=== PATIENT | female | born 1995 | race Caucasian/White ===

== ENCOUNTER 2018-09-21 19:13 | Emergency (ER) | payer BC, MEDICAID ==
[2018-09-21 19:29] VITALS: BP 117/72
[2018-09-21] MEDS ORDERED: Tetan/Diph/Pertus SYR(Tdap)* 0.5 ML SYR(BOOSTRIX) use SYR IM ONE (19:32)
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
== END 2018-09-21 19:46 | disposition home or self-care (01) ==
LOC: UCCORT 19:13
DX: T24.211A Burn of second degree of right thigh, initial encounter (principal); T31.0 Burns involving less than 10% of body surface; X11.8XXA Contact with other hot tap-water, initial encounter; Y93.G3 Activity, cooking and baking; Y92.833 Campsite as the place of occurrence of the external cause; L03.115 Cellulitis of right lower limb; Z23 Encounter for immunization
CPT/HCPCS: 16020; 90471; 90715; 99212; G0463

== ENCOUNTER 2019-05-05 09:49 | Emergency (ER) | payer BC ==
--- OUTSIDE RECORDS SUMMARY | 2019-05-05 09:57 | XMS REPORT | Continuity of Care Document ---
:1995 External Reference #:[id number] Author Name Orlando Bond N.P. 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 Tablets times a day as needed Phentermine HCL 1 by mouth 30caps E66.3 Christopher Ross, 09/03/2017 37.5mg every in the M.D. Capsules morning Medications Administered in Office Medication SIG Qnty Indications Ordering Provider Date Intradermal Mantoux Orlando Bond N.P. 03/21/2019 Injection Immunizations Description No Information Available Vital Signs Date Vital Result Comment 03/21/2019 1:00pm BP Systolic 120 mmHg BP Diastolic 57 mmHg Height 67 inches 5'7" Weight 177.00 lb BMI (Body Mass Index) 27.7 kg/m2 Heart Rate 88 /min Respiratory Rate 16 /min 06/14/2018 9:20am BP Systolic 110 mmHg BP Diastolic 64 mmHg Height 67 inches 5'7" Weight 166.00 lb BMI (Body Mass Index) 26.0 kg/m2 Heart Rate 81 /min Respiratory Rate 16 /min Results Description No Information Available Procedures Date Code Description Status 03/21/2019 26573 Visual Screening Test Completed 03/21/2019 59822 Audiometry, Bekesy, Screening Completed Medical Devices Description No Information Available Encounters Type Date Location Provider Dx Diagnosis Office Visit 03/21/2019 [facility] Orlando Bond, L20.9 Atopic dermatitis, 1:00p N.P. unspecified J30.9 Allergic rhinitis, unspecified K64.9 Unspecified hemorrhoids G43.119 Migraine with aura, intractable, without status migrainosus E66.3 Overweight Z30.49 Encounter for surveillance of other contraceptives R53.83 Other fatigue Z79.899 Other chcf (current) drug therapy G24.3 Spasmodic torticollis Z33.1 state, incidental Z00.01 Encounter for general adult medical exam w abnormal findings Z11.1 Encounter for screening for respiratory tuberculosis Assessments Date Code Description Provider 03/21/2019 L20.9 Atopic dermatitis, unspecified Orlando Bond, N.P. 03/21/2019 J30.9 Allergic rhinitis, unspecified Orlando Bond, N.P. 03/21/2019 K64.9 Unspecified hemorrhoids Orlando Bond, N.P. 03/21/2019 G43.119 Migraine with aura, intractable, without Orlando Bond, N.P. status migrainosus 03/21/2019 E66.3 Overweight Orlando Bond, N.P. 03/21/2019 Z30.49 Encounter for surveillance of other Orlando Bond, N.P. contraceptives 03/21/2019 R53.83 Other fatigue Orlando Bond, N.P. 03/21/2019 Z79.899 Other rn long term care (current) drug therapy Orlando Bond, N.P. 03/21/2019 G24.3 Spasmodic torticollis Orlando Bond, N.P. 03/21/2019 Z33.1 state, incidental Orlando Bond, N.P. 03/21/2019 Z00.01 Encounter for general adult medical Orlando Bond, N.P. examination with abnormal findings 03/21/2019 Z11.1 Encounter for screening for respiratory Orlando Bond, N.P. tuberculosis 03/17/2019 L20.9 Atopic dermatitis, unspecified Christopher Ross M.D. 03/17/2019 J30.9 Allergic rhinitis, unspecified Christopher Ross M.D. 03/17/2019 K64.9 Unspecified hemorrhoids Christopher Ross M.D. 03/17/2019 G43.119 Migraine with aura, intractable, without Christopher Ross M.D. status migrainosus 03/17/2019 E66.3 Overweight Christopher Ross M.D. 03/17/2019 Z30.49 Encounter for surveillance of other Christopher Ross M.D. contraceptives 03/17/2019 R53.83 Other fatigue Christopher Ross M.D. Plan of Treatment Future Appointment(s):03/24/2019 10:00 am - Christopher Ross M.D. at [facility] Functional Status Description No Information Available Mental Status Description No Information Available Referrals Description No Information Available
--- OUTSIDE RECORDS SUMMARY | 2019-05-05 09:57 | XMS REPORT | Continuity of Care Document ---
:1995 External Reference #:[id number] Author Name Christopher Ross M.D. 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 03/21/2019 Injection Immunizations Description No Information Available Vital Signs Date Vital Result Comment 03/24/2019 9:45am BP Systolic 118 mmHg BP Diastolic 70 mmHg Height 67 inches 5'7" Weight 177.00 lb BMI (Body Mass Index) 27.7 kg/m2 Heart Rate 62 /min Respiratory Rate 18 /min 03/21/2019 1:00pm BP Systolic 120 mmHg BP Diastolic 57 mmHg Height 67 inches 5'7" Weight 177.00 lb BMI (Body Mass Index) 27.7 kg/m2 Heart Rate 88 /min Respiratory Rate 16 /min Results Description No Information Available Procedures Date Code Description Status 03/21/2019 96053 Visual Screening Test Completed 03/21/2019 24867 Audiometry, Bekesy, Screening Completed Medical Devices Description No Information Available Encounters Type Date Location Provider Dx Diagnosis Office Visit 03/24/2019 [place] [facility] Christopher Ross, L20.9 Atopic dermatitis, 10:00a M.DJuliann unspecified J30.9 Allergic rhinitis, unspecified K64.9 Unspecified hemorrhoids G43.119 Migraine with aura, intractable, without status migrainosus E66.3 Overweight R53.83 Other fatigue Z79.899 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 03/24/2019 J30.9 Allergic rhinitis, unspecified Christopher Ross M.D. 03/24/2019 K64.9 Unspecified hemorrhoids Christopher Ross M.D. 03/24/2019 G43.119 Migraine with aura, intractable, without Christopher Ross M.D. status migrainosus 03/24/2019 E66.3 Overweight Christopher Ross M.D. 03/24/2019 R53.83 Other fatigue Christopher Ross M.D. 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 03/24/2019 Z33.1 state, incidental Christopher Ross M.D. 03/24/2019 Z11.1 Encounter for screening for respiratory CodyChristopher qureshi M.D. tuberculosis 03/21/2019 L20.9 Atopic dermatitis, unspecified Orlando Bond, N.P. 03/21/2019 J30.9 Allergic rhinitis, unspecified Orlando Bond N.P. 03/21/2019 K64.9 Unspecified hemorrhoids Orlando Bond N.P. 03/21/2019 G43.119 Migraine with aura, intractable, without Jose A Aldridge.Amol status migrainosus 03/21/2019 E66.3 Overweight Orlando Bond N.P. 03/21/2019 Z30.49 Encounter for surveillance of other Jose A Aldridge.PJuliann contraceptives 03/21/2019 R53.83 Other fatigue Orlando Bond N.P. 03/21/2019 Z79.899 Other alf (current) drug therapy Orlando Bond N.P. 03/21/2019 G24.3 Spasmodic torticollis Orlando Bond N.P. 03/21/2019 Z33.1 state, incidental Jose A Aldridge.P. 03/21/2019 Z00.01 Encounter for general adult medical Jose A Aldridge.Amol examination with abnormal findings 03/21/2019 Z11.1 Encounter for screening for respiratory Orlando Bond N.P. tuberculosis 03/17/2019 L20.9 Atopic dermatitis, unspecified [...] fatigue Christopher Ross M.D. Plan of Treatment 03/24/2019 - Christopher Ross M.D.L20.9 Atopic dermatitis, unspecifiedComments: SKIN CARE INSTRUCTIONS LOTION OR BABY OIL 2-3 APPLICATION PER DAYUSE MOISTURIZING SOAPAVOID PROLONGED WATER EXPOSUREAVOID USING HOT WATER IN WFAPDWB62.9 Allergic rhinitis, unspecifiedComments:INCREASE PO FLUID USE ANTIHISTAMINE PRN SECOND HAND SMOKING OXXGPVSOBR81.9 Unspecified hemorrhoidsComments:AVOID CONSTIPATOIN INCREASE FIBER IN DIETLAXATIVE PRNLUBRICATE ANAL AREA WITH LOTION PRN FOR TTOJATHL52.119 Migraine with aura, intractable, without status migrainosusComments:COUNCELLING AND REASSURANCE F/ U WITH NEUROLOGY PRNE66.3 OverweightComments:EXERCISE REGURALYDIET COUNCILLING DUR YXKYZCLW41.83 Other fatigueComments:INCRFEASE PO FLUIDCOUNCELLING AND REASSURANCE RESTZ79.899 Other terminal press operator (current) drug therapyComments:DRUG SCREEN DONEREVIEWED MEDICATIONS AND DIRECTIONS WITH PATIENT DUR YUFURGDC52.1 state, incidentalComments:F/U WITH FILM CREW MEMBER MVI PER OBZ11.1 Encounter for screening for respiratory tuberculosisComments:PPD NEGATIVE Functional Status Description No Information Available Mental Status Description No Information Available Referrals Description No Information Available
[2019-05-05 10:14] VITALS: BP 103/63
--- NOTE | 2019-05-05 12:22 | UC ---
FLU HPI - HPI Summary HPI Summary: 23-year-old female presenting at 27 weeks for complaint of sore throat , nasal congestion, and body aches 5 days. Notes minimal dry cough. Denies shortness of breath and wheezing. Denies nausea and vomiting. Denies fever and chills. Notes decreased appetite but normal fluid intake. States she has not been able to sleep well because she is so achy. Taking Tylenol for symptom relief. - History of Current Complaint Chief Complaint: UCGeneralIllness Stated Complaint: CONGESTION,COUGH,ACHES Hx Obtained From: Patient Hx Last Menstrual Period: 09/18/18 Pain Intensity: 5 Pain Scale Used: 0-10 Numeric - Allergy/Home Medications Allergies/Adverse Reactions: Allergies Allergy/AdvReac Type Severity Reaction Status Date / Time No Known Allergies Allergy Verified 05/05/19 10:09 Home Medications: Home Medications Vitamin TAB* 1 tab PO DAILY 05/05/19 [History Confirmed 05/05/19] PMH/Surg Hx/FS Hx/Imm Hx Previously Healthy: Yes - Surgical History Surgical History: Yes Surgery Procedure, Year, and Place: EAR TUBES - Family History Known Family History: Positive: Non-Contributory - Social History Alcohol Use: Occasionally Substance Use Type: None Smoking Status (MU): Never Smoked Tobacco Review of Systems All Other Systems Reviewed And Are Negative: Yes Constitutional: Positive: Negative ENT: Positive: Sore Throat, Sinus Congestion Respiratory: Positive: Cough. Negative: Shortness Of Breath Cardiovascular: Positive: Negative Gastrointestinal: Positive: Negative Musculoskeletal: Positive: Myalgia Neurological/Mental Status: Positive: Negative Physical Exam - Summary Physical Exam Summary: Vital Signs Reviewed: Yes A+Ox3, no distress, well-appearing Eyes: Conjunctiva Clear ENT: Hearing grossly normal, TM x 2 clear, +nasal congestion, +edematous turbinates, moist, uvula midline, no exudate, no erythema Neck: Positive: Supple Respiratory: Positive: No respiratory distress, No accessory muscle use + CTA throughout no w/r Cardiovascular: RRR nl s1, s2 no m/r Musculoskeletal Exam: KUMAR x 4 without difficulty Neurological: Positive: Alert Psychological: Positive: age appropriate behavior Skin: Positive: no rash, no ecchymosis Vital Signs: Initial Vital Signs Temp 98.2 F 05/05/19 10:07 Pulse 99 05/05/19 10:07 Resp 18 05/05/19 10:07 BP 103/63 05/05/19 10:07 Pulse Ox 99 05/05/19 10:07 Lab Results 05/05/19 Range/Units 12:24 Influenza A (Rapid) Positive H (Negative) Flu Course/Dx - Course Course Of Treatment: Positive rapid flu A. VS normal and lung sounds clear. I educated patient on influenza and symptomatic treatment. I instructed the patient to continue the Tylenol and nasal saline spray for symptomatic relief and to follow up with PCP if symptoms persist. Instructed to go to ED with any new or worsening symptoms. Patient is understanding and agreed with treatment plan. - Differential Dx/Diagnosis Differential Diagnosis/HQI/PQRI: Influenza, Upper Respiratory Infection Provider Diagnosis: Influenza A Discharge ED - Sign-Out/Discharge Documenting (check all that apply): Patient Departure All imaging exams completed and their final reports reviewed: No Studies - Discharge Plan Condition: Stable Disposition: HOME Patient Education Materials: Influenza (ED) Forms: *Work Release Referrals: Christopher Ross MD [Primary Care Provider] - If Needed Additional Instructions: As discussed, you tested positive for influenza A today. You may continue with tylenol and use nasal saline spray for symptom relief. Get plenty of rest and fluids. Follow up with your primary care provider if symptoms do not improve within 5-7 days. Go to the emergency room with any new or worsening symptoms. - Billing Disposition and Condition Condition: STABLE Disposition: Home
[2019-05-05 12:28] LABS: Influenza A Molecular POSITIVE (Negative)
== END 2019-05-05 12:44 | disposition home or self-care (01) ==
LOC: UCCORT 09:49
DX: O99.512 Diseases of the respiratory system complicating pregnancy, second trimester (principal); J10.1 Influenza due to other identified influenza virus with other respiratory manifestations; Z3A.27 27 weeks gestation of pregnancy
CPT/HCPCS: 99211; G0463